=== PATIENT | male | born 1935 | race Caucasian/White ===

== ENCOUNTER 2016-12-06 08:00 | Outpatient (CLI) | payer MEDICARE, OTHER ==
[2016-12-06 11:23] LABS: BUN - BLOOD UREA NITROGEN 20 mg/dL (6-20); CALCIUM 9.5 mg/dL (8.5-10.3); CARBON DIOXIDE - CO2 29 mmol/L (21-32); CHLORIDE 103 mmol/L (101-111); CHOL/HDL RATIO 4.7 (<5.0); CHOLESTEROL 184 mg/dL; CREATININE 1.2 mg/dL (0.6-1.2); GFR - MDRD 58 (>89); GLUCOSE 107 mg/dL (70-100); HDL CHOLESTEROL 39 mg/dL; LDL/HDL RATIO 2.5 (<3.6); POTASSIUM 3.7 mmol/L (3.5-5.0); SODIUM 139 mmol/L (135-145); TRIGLYCERIDES 235 mg/dL; VLDL CHOLESTEROL 47 mg/dL
== END 2016-12-06 08:01 | disposition home or self-care (01) ==
LOC: LAB.F 08:00
PROVIDERS: ATTEND Internal Medicine
DX: Z00.00 Encounter for general adult medical examination without abnormal findings (principal); N18.3 Chronic kidney disease, stage 3 (moderate); E78.5 Hyperlipidemia, unspecified; Z85.820 Personal history of malignant melanoma of skin; R73.01 Impaired fasting glucose; E78.2 Mixed hyperlipidemia; M17.10 Unilateral primary osteoarthritis, unspecified knee; Z85.828 Personal history of other malignant neoplasm of skin
CPT/HCPCS: 36415; 80048; 80061

== ENCOUNTER 2017-09-25 09:28 | Outpatient (CLI) | payer MEDICARE, OTHER ==
--- NOTE | 2017-09-25 15:13 | XRAY Report ---
TWO VIEW CHEST: 09/25/2017 CLINICAL INDICATION: Cough. COMPARISON: 12/15/2014. FINDINGS: Frontal and lateral views of the chest demonstrate a normal cardiac silhouette. The lungs are clear. No effusion or pneumothorax is present. IMPRESSION: NORMAL CHEST, UNCHANGED. TD: 09/25/2017 15:12
== END 2017-09-25 09:29 | disposition home or self-care (01) ==
LOC: DI.S 09:28
PROVIDERS: ATTEND Internal Medicine
DX: R05 Cough (principal)
CPT/HCPCS: 71046

== ENCOUNTER 2017-11-19 08:21 | Outpatient (CLI) | payer MEDICARE, OTHER ==
[2017-11-19 12:03] LABS: BUN - BLOOD UREA NITROGEN 20 mg/dL (6-20); CALCIUM 9.4 mg/dL (8.5-10.3); CARBON DIOXIDE - CO2 29 mmol/L (21-32); CHLORIDE 102 mmol/L (101-111); CHOL/HDL RATIO 4.3 (<5.0); CHOLESTEROL 158 mg/dL; CREATININE 1.2 mg/dL (0.6-1.2); GFR - MDRD 58 (>89); GLUCOSE 100 mg/dL (70-100); HDL CHOLESTEROL 37 mg/dL; LDL CHOLESTEROL,CALCULATED 78 mg/dL; LDL/HDL RATIO 2.1 (<3.6); SODIUM 137 mmol/L (135-145); VLDL CHOLESTEROL 43 mg/dL
== END 2017-11-19 08:22 | disposition home or self-care (01) ==
LOC: LAB.F 08:21
PROVIDERS: ATTEND Family Medicine
DX: N18.3 Chronic kidney disease, stage 3 (moderate) (principal); Z85.820 Personal history of malignant melanoma of skin; E78.5 Hyperlipidemia, unspecified; R73.01 Impaired fasting glucose; M17.10 Unilateral primary osteoarthritis, unspecified knee; Z00.00 Encounter for general adult medical examination without abnormal findings
CPT/HCPCS: 36415; 80048; 80061; 83721

== ENCOUNTER 2018-11-22 07:08 | Outpatient (CLI) | payer MEDICARE, OTHER ==
[2018-11-22 10:36] LABS: BUN - BLOOD UREA NITROGEN 19 mg/dL (6-20); CALCIUM 9.2 mg/dL (8.5-10.3); CARBON DIOXIDE - CO2 30 mmol/L (21-32); CHLORIDE 100 mmol/L (101-111); CHOL/HDL RATIO 4.1 (<5.0); CHOLESTEROL 155 mg/dL; CREATININE 1.2 mg/dL (0.6-1.2); GFR - MDRD 58 (>89); GLUCOSE 99 mg/dL (70-100); HDL CHOLESTEROL 38 mg/dL; LDL CHOLESTEROL,CALCULATED 88 mg/dL; LDL/HDL RATIO 2.3 (<3.6); SODIUM 140 mmol/L (135-145); VLDL CHOLESTEROL 29 mg/dL
== END 2018-11-22 07:09 | disposition home or self-care (01) ==
LOC: LAB.F 07:08
PROVIDERS: ATTEND Internal Medicine
DX: G56.00 Carpal tunnel syndrome, unspecified upper limb (principal); N18.3 Chronic kidney disease, stage 3 (moderate); Z85.820 Personal history of malignant melanoma of skin; E78.5 Hyperlipidemia, unspecified; H61.20 Impacted cerumen, unspecified ear; R73.01 Impaired fasting glucose
CPT/HCPCS: 36415; 80048; 80061; 83721

== ENCOUNTER 2019-05-02 11:47 | Outpatient (CLI) | payer MEDICARE, OTHER ==
[2019-05-02 18:17] LABS: CALCIUM 9.6 mg/dL (8.5-10.3); CREATININE 1.2 mg/dL (0.6-1.2)
== END 2019-05-02 11:48 | disposition home or self-care (01) ==
LOC: LAB.S 11:47
PROVIDERS: ATTEND Internal Medicine
DX: N18.3 Chronic kidney disease, stage 3 (moderate) (principal); Z85.820 Personal history of malignant melanoma of skin; E78.5 Hyperlipidemia, unspecified; R73.01 Impaired fasting glucose
CPT/HCPCS: 36415; 80048

== ENCOUNTER 2019-12-12 07:22 | Outpatient (CLI) | payer MEDICARE ==
[2019-12-12 10:22] LABS: BUN - BLOOD UREA NITROGEN 22 mg/dL (6-20); CALCIUM 9.3 mg/dL (8.5-10.3); CARBON DIOXIDE - CO2 27 mmol/L (21-32); CHLORIDE 104 mmol/L (101-111); CHOL/HDL RATIO 3.9 (<5.0); CHOLESTEROL 173 mg/dL; CREATININE 1.1 mg/dL (0.6-1.2); GLUCOSE 110 mg/dL (70-100); HDL CHOLESTEROL 44 mg/dL; LDL CHOLESTEROL,CALCULATED 95 mg/dL; LDL/HDL RATIO 2.2 (<3.6); SODIUM 139 mmol/L (135-145); VLDL CHOLESTEROL 34 mg/dL
== END 2019-12-12 07:23 | disposition home or self-care (01) ==
LOC: LAB 07:22
PROVIDERS: ATTEND Internal Medicine
DX: G56.00 Carpal tunnel syndrome, unspecified upper limb (principal); N18.3 Chronic kidney disease, stage 3 (moderate); Z85.820 Personal history of malignant melanoma of skin; E78.5 Hyperlipidemia, unspecified; H61.20 Impacted cerumen, unspecified ear; R73.01 Impaired fasting glucose
CPT/HCPCS: 36415; 80048; 80061; 83721